=== PATIENT | female | born 1995 | race Caucasian/White ===

== ENCOUNTER 2020-01-11 10:54 | Emergency (ER) | payer OTHER, BC, SELFPAY ==
--- NOTE | ~2020-01-11 | XR_ITS ---
XR hand LT min 3V 01/11/2020 11:57 Indication: Pain in the left fifth finger after trauma Procedure: 4 views left hand Comparison: No prior studies for comparison. Findings: There is a pathologic fracture through an expansile lytic lesion base of the fifth proximal phalanx. No other fracture or traumatic malalignment. The lytic lesion is well-circumscribed without periosteal reaction, likely benign. Impression: 1: Nondisplaced pathologic fracture through expansile lytic lesion proximal aspect of the left fifth proximal phalanx. Reviewed, dictated and finalized at location B. Impression: 1: Nondisplaced pathologic fracture through expansile lytic lesion proximal asp ect of the left fifth proximal phalanx.
--- NOTE | 2020-01-11 11:07 | ED.UPPEXIN ---
HPI - Extremity Injury (Upper) General Chief Complaint: Extremity Injury, Upper Stated Complaint: Left pinky fing pain and swelling Time Seen by Provider: 01/11/20 11:38 Source: patient Mode of arrival: ambulatory Limitations: no limitations History of Present Illness HPI narrative: 24-year-old woman comes in today complaining of left pinky pain that started last night. Patient states that she was at work and lifting a heavy box when it slipped and caused her left pinky finger to be ulnar deviated. She states it felt like it popped and did not have much pain until this morning. She denies numbness or tingling in her prior hand injuries. complaint: injury to: left and finger (Pinky) Onset (ago): hour(s) (12) Other Extremity Injury: Left: fingers Other injuries: none Handedness: right Place: work Severity: moderate Relieving factors: rest Exacerbating factors: movement of extremity and other ( palpation) Related Data Allergies Allergy/AdvReac Type Severity Reaction Status Date / Time No Known Allergies Allergy Verified 01/11/20 12:07 Review of Systems ENT: Denies dysphagia, Denies nasal congestion and Denies sore throat Cardiovascular: Cardiovascular: Denies chest pain and Denies radiating jaw, neck or arm pain Respiratory: Respiratory: Denies cough and Denies dyspnea Gastrointestinal: Gastrointestinal: Denies nausea and Denies vomiting Musculoskeletal: Musculoskeletal: Reports as per HPI, Reports arthralgias and Reports joint swelling Integumentary/Breasts: Skin/Breast: Reports pruritus, Reports erythema and Reports rash Neurologic: Denies vertigo, Denies dizziness and Denies syncope Hematologic/Lymphatic: Hematologic/Lymphatic: Denies easy bleeding and Denies easy bruising Allergic/Immunologic: Allergic/Immunologic: Denies lip swelling and Denies wheezing [facility] Past Medical History Medical History Migraines Social History Social History (Updated 01/11/20 @ 11:46 by Rajan Waller MD) Smoking status: Never smoker Alcohol intake: current Alcohol use details: rarely Substance use: never Living arrangements: with family Exam Const: General: alert Nutritional Appearance: obese Orientation/consciousness: patient oriented x3 Limitations: no limitations Other: mild acute distress. Eyes: Conjunctivae: conjunctivae normal Pupils: Equal, round and reactive pupils present EOM: EOMs intact bilaterally Resp: Effort & Inspection: normal respiratory effort and not labored Auscultation: clear to auscultation bilaterally, no rales, no rhonchi and no wheezes Cardio: Rate: regular rate Rhythm: regular rhythm Heart sounds: no murmurs Skin: General skin exam: normal color, no jaundice and no pallor Rashes: no rashes Neuro: General: patient oriented x3, moves all extremities, no focal motor deficits and CN's II-XI intact bilaterally Speech: normal speech Gait exam (Neuro): Normal gait present Extrem: General: normal to inspection and no clubbing, cyanosis or edema Other: Tenderness to palpation of the MCP and PIP of the left pinky finger. There is swelling over the proximal phalanx. Psych: Appearance: grossly normal and well kempt Mental Status: mental status grossly normal Affect: normal affect Attitude: cooperative Thought content: Yes Normal thought content present Discharge Plan Discharge Clinical Impression: Pathological fracture of phalanx of finger of left hand Patient Disposition: Home, Self-Care Condition: Stable Instructions: Finger Fracture (ED) Additional Instructions: Follow-up with orthopedist, call for appointment. Rest, Ice, Elevation Prescriptions: New acetaminophen-codeine [Tylenol-Codeine #3] 300-30 mg tablet 1 tablet PO Q6H PRN (Reason: pain) Qty: 10 RF: 0 Follow-up/Referrals: UNKNOWN,DOCTOR [Primary Care Provider] - Meño Ralph MD [Physician] - Stand Alone Forms:
[2020-01-11 11:17] VITALS: BP 133/61; PULSE 82; RESP 16; TEMP 36.8; O2SAT 99
[2020-01-11 13:18] VITALS: BP 135/87; PULSE 85; RESP 18; O2SAT 99
== END 2020-01-11 13:18 | disposition home or self-care (01) ==
PROVIDERS: Emergency Provider Emergency Medicine
DX: S62.607A Fracture of unspecified phalanx of left little finger, initial encounter for closed fracture (principal); X50.0XXA Overexertion from strenuous movement or load, initial encounter
CPT/HCPCS: 29125; 73130; 99283; 99284

== ENCOUNTER 2020-04-10 10:02 | Emergency (ER) | payer BC, SELFPAY ==
[2020-04-10 10:30] VITALS: BP 132/88; PULSE 78; RESP 19; TEMP 36.6; O2SAT 99
--- NOTE | 2020-04-10 10:51 | ED.HA ---
HPI - Headache General Chief Complaint: Headache Stated Complaint: Migrane Time Seen by Provider: 04/10/20 10:51 Source: patient Mode of arrival: ambulatory Limitations: no limitations History of Present Illness HPI Narrative: 24-year-old woman comes in today complaining of a headache that started yesterday. She states that she has had nausea and photophobia with it. She states she has had at least 1 similar prior headache in the last year. She has had no head injury, fever, change in vision, syncope, recent sore throat, cough or cold symptoms. She states the pain is on the left side behind her eye going to her occiput. MD elicited complaint: headache Onset (ago): day(s) (1) Onset description: gradually Location: left and retro-orbital Severity: moderate Quality & Timing: throbbing Exacerbating factors: light Relieving factors: rest and dark room Associated symptoms: nausea and vomiting Related Data Allergies Allergy/AdvReac Type Severity Reaction Status Date / Time No Known Allergies Allergy Verified 01/11/20 12:07 Review of Systems Constitutional: Constitutional: Denies chills, Denies fever(s) and Denies weakness Eyes: Eyes: Denies change in vision and Reports photophobia ENT: Denies dysphagia, Denies nasal congestion and Denies sore throat Cardiovascular: Cardiovascular: Denies chest pain Respiratory: Respiratory: Denies cough and Denies dyspnea Gastrointestinal: Gastrointestinal: Reports as per HPI, Denies abdominal pain, Denies diarrhea, Reports nausea and Reports vomiting Genitourinary: Genitourinary: Denies nocturia and Denies dysuria Musculoskeletal: Musculoskeletal: Denies back pain, Denies arthralgias and Denies joint swelling Integumentary/Breasts: Skin/Breast: Denies pruritus, Denies erythema and Denies rash Neurologic: Denies vertigo, Denies dizziness and Denies syncope Hematologic/Lymphatic: Hematologic/Lymphatic: Denies easy bleeding and Denies easy bruising Allergic/Immunologic: Allergic/Immunologic: Denies lip swelling and Denies wheezing PMFSH Past Medical History Medical History (Updated 04/10/20 @ 13:23 by Rajan Waller MD) Migraines Social History Social History Smoking status: Never smoker Alcohol intake: current Substance use: never Exam Const: Nutritional Appearance: obese Orientation/consciousness: patient oriented x3 Limitations: no limitations Other: Moderate acute distress HENMT: Head: normal to inspection Ears: external ears normal, TM's normal bilaterally and EAC's normal General nose exam: Normal nares present Face and sinus: normal facial exam Mouth: Yes moist mucous membranes abnormal Throat: posterior oropharynx normal Eyes: Conjunctivae: conjunctivae normal Pupils: Equal, round and reactive pupils present EOM: EOMs intact bilaterally Resp: Effort & Inspection: normal respiratory effort and not labored Auscultation: clear to auscultation bilaterally, no rales, no rhonchi and no wheezes Cardio: Rate: regular rate Rhythm: regular rhythm Heart sounds: no murmurs Skin: General skin exam: normal color, no jaundice and no pallor Rashes: no rashes Neuro: General: patient oriented x3, moves all extremities, no focal motor deficits and CN's II-XI intact bilaterally Speech: normal speech Gait exam (Neuro): Normal gait present Other: normal DTRs in the lower extremities, normal [id number], normal gait. Extrem: General: normal to inspection and no clubbing, cyanosis or edema Psych: Appearance: grossly normal and well kempt Mental Status: mental status grossly normal Affect: normal affect Attitude: cooperative Thought content: Yes Normal thought content present Course Vital Signs Vital signs: Vital Signs Temperature 36.6 C 04/10/20 10:30 Pulse Rate 78 04/10/20 10:30 Respiratory Rate 19 04/10/20 10:30 Blood Pressure 132/88 04/10/20 10:30 Pulse Oximetry 99 10/
[2020-04-10 11:08] LABS: Pregnancy On Board Control Positive; Urine Pregnancy Test Negative
[2020-04-10] MEDS: KETOROLAC (*BKC) 60 MG/2 ML VIAL IM (11:18)
[2020-04-10] MEDS: PROMETHAZINE HCL 25 MG/ML AMPUL IM (11:18)
[2020-04-10 13:34] VITALS: BP 142/71
== END 2020-04-10 13:30 | disposition home or self-care (01) ==
PROVIDERS: Emergency Provider Emergency Medicine
DX: R51.9 Headache, unspecified (principal)
CPT/HCPCS: 81025; 96372; 99283; 99284; J1885; J2550

== ENCOUNTER 2023-01-12 19:31 | Emergency (ER) | payer BC, SELFPAY ==
[2023-01-12] VITALS (16 sets, daily range): BP systolic 90–151; BP diastolic 46–98; PULSE 97–114; RESP 15–29; TEMP 37.2–38; O2SAT 97–100
--- NOTE | ~2023-01-12 | XR_ITS ---
Clinical Indication: Chest pain PA and lateral views of the chest: Comparison: None Findings: The lungs are clear, without evidence of focal consolidation or pleural effusion. Cardiome diastinal silhouette is within normal limits. Bones and soft tissues are unremarkable. Impression: Normal chest. Reviewed, dictated and finalized at location . Impression: Normal chest.
--- NOTE | 2023-01-12 20:49 | ED.CHESTPAIN ---
HPI - Chest Pain General Chief Complaint: Chest Pain Stated Complaint: Chest Pain Source: patient Mode of arrival: ambulatory Limitations: no limitations History of Present Illness HPI narrative: Patient is a 27-year-old obese white female complains of chest pain this started last night she read is a 6 or 7/10. Retrosternal radiating up to both ears and through to her mid back hurts to take a deep breath is worse when she leans back or moves. She had similar pain the last time a few months ago that raised after years of turned out to be an ear infection per her primary care at [facility]. She denies any trauma. She denies any cough shortness of breath sore throat rash or itching lumps or bumps dizziness or lightheadedness bleeding or bruising. Always has a runny nose. Last menstrual period was the end of November. DENIES ANY OTHER COMPLAINTS. PAST MEDICAL HISTORY:She has a history of chronic back pain in her mid to lower back and anxiety and obesity. 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 [employer] denies any alcohol smoking or illicit drug use MEDS: Hydroxyzine for anxiety lorazepam for panic attacks ALLERGIES: NKDA Related Data Home Medications Medication Instructions Recorded Confirmed hydroxyzine HCl 25 mg tablet 25 mg PO PRN PRN Anxiety 01/12/23 01/12/23 lorazepam 1 mg tablet 1 mg PO PRN PRN Anxiety 01/12/23 01/12/23 Allergies Allergy/AdvReac Type Severity Reaction Status Date / Time No Known Allergies Allergy Verified 01/12/23 19:34 Review of Systems Review of Systems: All systems reviewed & are unremarkable except as noted in HPI and below PMFSH Past Medical History Medical History (Updated 01/13/23 @ 03:33 by Donnie Burns MD) Migraines Social History Social History Smoking status: Never smoker Alcohol intake: current Alcohol use details: rarely Substance use: never Living arrangements: with family Exam Narrative: obese white patient with mild distress.? Head normocephalic, atraumatic.? Eyes conjunctiva pink sclera nonicteric.? Extraocular movements are intact.? Ears externally normal.? tympanic membranes are normal bilaterally. Oropharynx is clear with moist mucous membranes without exudates.? Neck is supple nontender no lymphadenopathy.? Back Mild tenderness of her lower back..? Lungs are clear.? Heart is regular rate and rhythm without murmurs gallops or rubs.? Chest wall is Mildly tender in the anterior chest it partially reproduces her pain.? Abdomen is Obese soft and nontender no hepatosplenomegaly or masses no CVA tenderness no abdominal bruits.? Extremities no cyanosis clubbing or edema.? Skin is warm and dry without rashes or lesions.? Neurological patient is alert and oriented x4.? Motor and sensory grossly intact.? Gait is normal. Course Vital Signs Vital signs: Vital Signs Temperature 38.0 C H 01/12/23 19:40 Pulse Rate 114 H 01/12/23 19:40 Respiratory Rate 24 H 01/12/23 19:40 Blood Pressure 138/89 01/12/23 19:40 Pulse Oximetry 98 01/12/23 19:40 Oxygen Delivery Room Air 01/12/23 19:40 Temperature 37.2 C 01/12/23 22:15 Pulse Rate 107 H 01/12/23 23:31 Respiratory Rate 22 H 01/12/23 23:30 Blood Pressure 99/53 L 01/12/23 23:30 Pulse Oximetry 99 01/12/23 23:31 Oxygen Delivery Room Air 01/12/23 21:39 MDM - Chest Pain MDM Narrative Medical decision making narrative: patient is placed in room 4 history and physical were done. She was given Toradol 30 mg IV and 4 mg of Zofran IV. She got substantial relief for this pain felt much better and was wishing discharged after her workup which was done which included normal coags D-dimer CMP troponin and a CBC with the exception of her white count being 21.1.
--- NOTE | 2023-01-12 21:01 | ECG_ITS ---
Measurements Intervals [place] Rate: 101 P: 19 MD: 145 QRS: 5 QRSD: 84 T: 20 QT: 309 QTc: 401 Interpretive Statements SINUS TACHYCARDIA MINIMAL Q WAVES- HIGH LATERAL LEADS BASELINE ARTIFACT- I, II, III, AVR, AVL, AVF BORDERLINE ECG NO PREVIOUS ECG AVAILABLE FOR COMPARISON Electronically Signed On 01-13-2023 7:00:24 CDT by Fei Penn D.O.
[2023-01-12] MEDS: KETOROLAC 30 MG/ML VIAL (*BKC) IV PUSH (21:29)
[2023-01-12] MEDS: ONDANSETRON INJ 4 MG/2 ML VIAL IV PUSH (21:29)
[2023-01-12 21:42] LABS: Hematocrit 43.1 % (35.0-49.0); Hemoglobin 14.4 g/dL (12.0-15.0); Mean Corpuscular HGB Conc 33.4 g/dL (32.0-36.0); Mean Corpuscular Hemoglobin 29.8 pg (27.0-31.0); Mean Platelet Volume 10.1 fl (9.2-11.8); Platelet Count Result 376 K/mm3 (150-420); Red Blood Count 4.84 M/mm3 (4.20-5.40); Red Cell Distribution Width 12.4 % (11.6-14.4)
[2023-01-12 21:50] LABS: White Blood Count 21.1 K/mm3 (4.8-10.8)
[2023-01-12 21:57] LABS: D Dimer 0.28 mg/L (0.19-0.50); INR 0.9; Partial Thromboplastin Time 29.3 SEC (23.90-30.70); Prothrombin Time 9.8 Seconds (9.50-12.10)
[2023-01-12 22:01] LABS: Alanine Aminotransferase 33 U/L (14-59); Albumin Level 3.7 g/dL (3.4-5.0); Alkaline Phosphatase 99 U/L (46-116); Anion Gap 9 mmol/L (8-16); Aspartate Amino Transferase 16 U/L (15-37); Bilirubin,Total 0.4 mg/dL (0.00-1.00); Blood Urea Nitrogen 10 mg/dL (7-18); Calcium 9.4 mg/dL (8.5-10.1); Carbon Dioxide 28 mmol/L (21-32); Chloride 100 mmol/L (98-108); Estimated CRCL calculation 121 ml/min; Estimated Glomerular Filt Rate > 60; Glucose 82 mg/dL (70-99); Osmolality Calculated 282 mOsm/kg (285-295); Potassium 3.8 mmol/L (3.5-5.1); Sodium 137 mmol/L (136-145); Total Protein 8.2 g/dL (6.4-8.2); Troponin I 10.4 ng/L (0.00-60.4)
== END 2023-01-13 00:10 | disposition home or self-care (01) ==
PROVIDERS: Emergency Provider Emergency Medicine
DX: R07.9 Chest pain, unspecified (principal); D72.829 Elevated white blood cell count, unspecified; F41.9 Anxiety disorder, unspecified
CPT/HCPCS: 36415; 71046; 80053; 84484; 85027; 85380; 85610; 85730; 93005; 96374; 96375; 99284; J1885; J2405